=== PATIENT | male | born 1960 | race Caucasian/White ===

== ENCOUNTER 2017-04-14 15:13 | Outpatient (CLI) | payer BC ==
--- NOTE | 2017-04-14 16:41 | Diagnostic Imaging Report ---
Indication: PAIN Technique: 3 views of the right ankle Comparison: none Findings: No acute fractures. No dislocations. Joint spaces are preserved Impression: Negative
== END 2017-04-14 17:13 | disposition home or self-care (01) ==
LOC: RAD 15:13
DX: M25.571 Pain in right ankle and joints of right foot (principal)

== ENCOUNTER 2018-05-18 16:38 | Outpatient (CLI) | payer BC ==
--- NOTE | 2018-05-19 11:41 | Diagnostic Imaging Report ---
Indication: Cough Comparison: None 2 views of the chest obtained. Findings: Cardiomediastinal silhouette and pulmonary vascularity are within normal limits for age. The diaphragmatic contour is smooth and costophrenic angles are sharp. No pleural effusions are identified. The bones are unremarkable. Impression: No acute disease
== END 2018-05-18 18:38 | disposition home or self-care (01) ==
LOC: RAD 16:38
DX: R09.89 Other specified symptoms and signs involving the circulatory and respiratory systems (principal); R05 Cough
CPT/HCPCS: 71046